=== PATIENT | female | born 1965 | race Caucasian/White ===

== ENCOUNTER 2016-07-10 08:34 | Emergency (ER) | payer SELFPAY ==
[~2016-07-10] VITALS: Ht 167.6 cm; Wt 76.5 kg
[2016-07-10 08:51] VITALS: TEMP 37; Ht 167.6 cm; Wt 76.5 kg
[2016-07-10] MEDS ORDERED: OXYCODONE HCL IR 5 MG TAB (IMMEDIATE RELEASE) PO STA (09:31)
[2016-07-10] MEDS ORDERED: IBUPROFEN 600 MG TAB PO STA (09:31)
[2016-07-10] MEDS ORDERED: XYLOCAINE 1%/SOD BICARB 20 ML VIAL INFIL ONE (09:45)
[2016-07-10] MEDS ORDERED: AMOXICILLIN/CLAVULANATE TAB 875 MG TAB PO ONE (09:45)
--- NOTE | 2016-07-10 10:21 | DIAGNOSTIC IMAGING REPORT ---
LEFT THIRD FINGER 3 VIEWS CLINICAL HISTORY: Pain status post trauma. Dog bite. COMPARISON: None. DISCUSSION: No acute fractures are visualized. There is soft tissue swelling. There is scattered punctate radiopacities within the soft tissues, likely reflecting tiny foreign bodies. IMPRESSION: 1. Punctate opaque foreign bodies 2. No evidence of fracture 3. Soft tissue swelling Electronically signed by: Michel Borges M.D. 07/10/2016 10:20 AM Dictated Date/Time: 07/10/2016 10:18 AM
[2016-07-10 11:00] VITALS: BP 145/75; PULSE 79; O2SAT 98
--- NOTE | 2016-07-10 11:04 | EMERGENCY ROOM VISIT NOTE ---
ED Visit Note I was asked to suture this patient's wound by Dr. Chang please see his dictation for full history and physical. Informed oral consent was obtained from the patient. Left long finger was prepped with Betadine and draped with a sterile towel. Wound was anesthetized using 3 cc1% buffered lidocaine in a digital block. A thorough inspection was performed. She has a 1.2 cm skin tear present on the flexor surface of the middle phalanx. Patient does have the flexor tendon exposed, but it is not visibly violated. Wound was irrigated copiously using normal sterile saline under jet spray lavage. There was no additional foreign material visible in the wound. It was then loosely closed using 4-0 nylon in a simple interrupted [id number] fashion x1. wound edge approximation was achieved. The sides were left open to allow for drainage. Hemostasis was achieved. Wound care precautions were reviewed. Wound care handout was provided. Sutures out in 12 days. She may shower. Avoid prolonged soaking or swimming for 2 weeks. Cleanse daily with soap and water and reapply a small amount of bacitracin or Neosporin. Current/Historical Medications No Active Prescriptions or Reported Meds Allergies Coded Allergies: No Known Allergies (Unverified , 07/10/16) Vital Signs Date Time Temp Pulse Resp B/P Pulse Ox O2 Delivery O2 Flow Rate FiO2 07/10/16 08:51 37.0 85 18 160/100 97 Room Air Medications Administered Medications (Trade) Dose Ordered Sig/Uday Route Start Time Stop Time Status Last Admin Dose Admin Oxycodone HCl (Roxicodone Immediate Rel Tab) 5 mg NOW STAT PO 07/10/16 09:31 07/10/16 09:33 DC 07/10/16 10:03 5 MG Ibuprofen (Motrin Tab) 600 mg NOW STAT PO 07/10/16 09:31 07/10/16 09:33 DC 07/10/16 10:02 600 MG Amoxicillin/ Clavulanate Potassium (Augmentin Tab) 875 mg ONE ONCE PO 07/10/16 09:45 07/10/16 09:46 DC 07/10/16 10:03 875 MG Lidocaine HCl (Buffered Lidocaine 1% Inj) 20 ml NOW ONCE INFIL 07/10/16 09:45 07/10/16 09:46 DC 07/10/16 10:03 20 ML Departure Information Prescriptions No Active Prescriptions or Reported Meds Referrals No Doctor, Assigned (PCP) Patient Instructions [facility]
[2016-07-10] MEDS ORDERED: OXYC1TAB3 PO (11:10)
[2016-07-10] MEDS ORDERED: AMOX875T PO (11:10)
--- NOTE | 2016-07-10 15:20 | EMERGENCY ROOM VISIT NOTE ---
History Report prepared by Noa: Aubrie Smiley Under the Supervision of: Dr. Marquez Chang M.D. 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 The patient currently rates her pain as a 6/10 in severity. The patient states that one of her own dogs in her house bit her finger causing it to bleed. The patient states that the bite was bleeding yesterday and she thought that it would be okay but states that the pain, bleeding, and swelling persisted throughout the day causing her to come to the ED today. The patient states that her dogs are vaccinated without any concern for rabies. The patient states that other than her finger pain she has no other pain. The patient states her tetanus vaccination is up to date. 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 Review of Systems See HPI for pertinent positives & negatives. A total of 6 systems reviewed and were otherwise negative. Past Medical & Surgical Medical Problems: (1) No active medical problems Family History Patient reports no known family medical history. Social History Smoking Status: Former Smoker Marital Status: Housing Status: lives with family Occupation Status: employed Current/Historical Medications Scheduled Amoxicillin & Pot Clavulanate (Augmentin 875-125 mg), 875 MG PO BID Scheduled PRN Oxycodone Ir (Roxicodone Ir), 1-2 TAB PO Q4H PRN for Pain Allergies Coded Allergies: No Known Allergies (Unverified , 07/10/16) Physical Exam Vital Signs Date Time Temp Pulse Resp B/P Pulse Ox O2 Delivery O2 Flow Rate FiO2 07/10/16 11:00 79 18 145/75 98 Room Air 07/10/16 08:51 37.0 85 18 160/100 97 Room Air Physical Exam GENERAL: Sitting on stretcher, no distress. EXTREMITIES: Two centimeter stellate laceration to the palmar aspect of the left third finger, just proximal to the DIP. There is swelling of the finger and some mild erythema and warmth to the finger. No pus-like drainage. Flexor tendon function seems intact. NVI distally in the third left finger. No gross deformity. Medical Decision & Procedures ER Provider Diagnostic Interpretation: X-ray results as stated below per interpretation by me and the radiologist: LEFT THIRD FINGER 3 VIEWS CLINICAL HISTORY: Pain status post trauma. Dog bite. COMPARISON: None. DISCUSSION: No acute fractures are visualized. There is soft tissue swelling. There is scattered punctate radiopacities within the soft tissues, likely reflecting tiny foreign bodies. IMPRESSION: 1. Punctate opaque foreign bodies 2. No evidence of fracture 3. Soft tissue swelling Electronically signed by: Michel Borges M.D. 07/10/2016 10:20 AM Dictated Date/Time: 07/10/2016 10:18 AM Medications Administered Medications (Trade) Dose Ordered Sig/Uday Route Start Time Stop Time Status Last Admin Dose Admin Oxycodone HCl (Roxicodone Immediate Rel Tab) 5 mg NOW STAT PO 07/10/16 09:31 07/10/16 09:33 DC 07/10/16 10:03 5 MG Ibuprofen (Motrin Tab) 600 mg NOW STAT PO 07/10/16 09:31 07/10/16 09:33 DC 07/10/16 10:02 600 MG Amoxicillin/ Clavulanate Potassium (Augmentin Tab) 875 mg ONE ONCE PO 07/10/16 09:45 07/10/16 09:46 DC 07/10/16 10:03 875 MG Lidocaine HCl (Buffered Lidocaine 1% Inj) 20 ml NOW ONCE INFIL 07/10/16 09:45 07/10/16 09:46 DC 07/10/16 10:03 20 ML ED Course 0927: The patient was evaluated in room B11B. A complete history and physical exam was performed. 0931: Ordered Motrin Tab 600 mg PO, Oxycodone HCl 5 mg PO. 0945: Ordered Lidocaine HCl 20 ml INFIL, Augmentin Tab 875 mg PO. 1003: I reevaluated the patient and she was resting comfortably. I informed her that the physician facilities maintenance assistant would be in to repair her finger. 1105: Reevaluated the patient. Discussed results and discharge instructions: She verbalized understanding and agreement. The patient is ready for discharge. Medical Decision The patient is a 50 year old female who presents to the ED with complaints of finger pain. Differential diagnoses considered include tendon laceration, finger fracture, infection, neurovascular compromise. The patient presents with a dog bite to her left third finger. The rings on the finger were removed, they had to be cut off. Her wound was cleansed and loosely closed by my PA, please see his note. Films of the left third finger show some possible punctate foreign debris, no finger fracture or bony malalignment. On my exam, there was no neurovascular compromise, the flexor tendon function seemed intact. Patient was given oral Augmentin, oral oxycodone and oral Motrin. She is being discharged with orthopedic follow-up. A prescription for Augmentin was written. [place] Drug Monitoring Program Search Results: no issues identified Impression Primary Impression: Dog bite Additional Impression: Finger laceration Scribe Attestation The scribe's documentation has been prepared under my direction and personally reviewed by me in its entirety. I confirm that the note above accurately reflects all work, treatment, procedures, and medical decision making performed by me. Departure Information Dispostion Home / Self-Care Prescriptions Oxycodone Ir (Roxicodone Ir) 5 Mg Tab 1-2 TAB PO Q4H Y for Pain, #12 TAB Prov: Marquez Chang M.D. 07/10/16 Amoxicillin & Pot Clavulanate (Augmentin 875-125 mg) 1 Tab Tab 875 MG PO BID for 10 Days, #20 TAB Prov: Marquez Chang M.D. 07/10/16 Referrals No Doctor, Assigned (PCP) Forms HOME CARE DOCUMENTATION FORM, IMPORTANT VISIT INFORMATION Patient Instructions My [facility] Additional Instructions call orthopedics tuesday for an appt and followup augmentin 2x per day for 10 days oxy ir 1-2 tab every 4 hours for pain keep the hand elevated keep it clean and covered--wash the wound 2x per day and re-dress return for fever, worsening symptoms, or increasing redness Problem Qualifiers
== END 2016-07-10 11:27 | disposition home or self-care (01) ==
LOC: C.EDB 08:36
DX: S61.213A Laceration without foreign body of left middle finger without damage to nail, initial encounter (principal); W54.0XXA Bitten by dog, initial encounter; Z87.891 Personal history of nicotine dependence